=== PATIENT | male | born 1950 | race Caucasian/White ===

== ENCOUNTER 2018-04-21 08:11 | Emergency (ER) | payer MEDICARE, OTHER ==
[2018-04-21 08:21] VITALS: BP 184/96; PULSE 63; RESP 16; TEMP 97.6
--- NOTE | 2018-04-21 08:28 | ED ---
ENT HPI - General Chief complaint: ENT Stated complaint: blood in ear Time Seen by Provider: 04/21/18 08:22 Source: patient, RN notes reviewed Mode of arrival: ambulatory Limitations: no limitations - History of Present Illness Initial comments: 67 year old male presents emergency Department chief complaint of blood in his right ear canal. Patient states he woke up with this. Patient did admit that he's been digging at his ear secondary to ear wax. Patient states she has no associated pain, decreased hearing, headache, dizziness, fever or chills. Patient states her was only one episode of blood. Patient does not take any blood thinners. Patient states depending like this in the past. Patient offers no other complaints. - Related Data Home Medications Medication Instructions Recorded Confirmed Albuterol Inhaler [Ventolin 2 puff INHALATION RT-Q6H PRN 02/11/15 03/17/17 Inhaler] Levothyroxine Sodium [Levoxyl] 112 mcg PO DAILY 02/11/15 03/17/17 amLODIPine [Norvasc] 10 mg PO DAILY 03/12/15 03/17/17 Albuterol Nebulized [Ventolin 2.5 mg INHALATION RT-Q4H PRN 03/17/17 03/17/17 Nebulized] Hydrocodone/Acetaminophen [Crystal 1 tab PO TID PRN 03/17/17 03/17/17 10-325] Lisinopril [Zestril] 40 mg PO DAILY 03/17/17 03/17/17 Previous Rx's Medication Instructions Recorded Ofloxacin 0.3% Otic Soln [Floxin 10 drops BOTH EARS BID #10 ml 04/21/18 0.3% Otic Soln] Allergies Allergy/AdvReac Type Severity Reaction Status Date / Time No Known Allergies Allergy Verified 04/21/18 08:21 Review of Systems ROS Statement: Those systems with pertinent positive or pertinent negative responses have been documented in the HPI. ROS Other: All systems not noted in ROS Statement are negative. Past Medical History Past Medical History: Cancer, Hypertension, Thyroid Disorder Additional Past Medical History / Comment(s): throat ca, migraines, back pain, insomnia History of Any Multi-Drug Resistant Organisms: None Reported Past Surgical History: Orthopedic Surgery Additional Past Surgical History / Comment(s): back, neck Past Psychological History: No Psychological Hx Reported Smoking Status: Current every day smoker Past Alcohol Use History: None Reported Past Drug Use History: None Reported General Exam Limitations: no limitations General appearance: alert, in no apparent distress Head exam: Present: atraumatic, normocephalic, normal inspection Eye exam: Present: normal appearance, PERRL, EOMI. Absent: scleral icterus, conjunctival injection, periorbital swelling ENT exam: Present: normal oropharynx, mucous membranes moist, TM's normal bilaterally. Absent: normal external ear exam (Right EAC there is no abrasion noted there is old dried blood no active bleeding there is mild cerumen) Neck exam: Present: normal inspection, full ROM. Absent: tenderness, meningismus, lymphadenopathy Respiratory exam: Present: normal lung sounds bilaterally. Absent: respiratory distress, wheezes, rales, rhonchi, stridor Cardiovascular Exam: Present: regular rate, normal rhythm, normal heart sounds. Absent: systolic murmur, diastolic murmur, rubs, gallop, clicks Course Vital Signs 04/21/18 08:17 Temperature 97.6 F Pulse Rate 63 Respiratory 16 Rate Blood Pressure 184/96 O2 Sat by Pulse 99 Oximetry Medical Decision Making - Medical Decision Making 67-year-old male presented for right here blood in canal. Patient has noted abrasion with no active bleeding. There is no evidence of perforation. He does have mild cerumen impaction. Patient will given ofloxacin eardrops for prophylaxis antibiotics. Patient will follow-up with ENT return for any worsening symptoms. Disposition Clinical Impression: Abrasion of ear canal Disposition: HOME SELF-CARE Condition: Stable Instructions: Earache (ED) Additional Instructions: Please return to the Emergency Department if symptoms worsen or any other concerns. Prescriptions: Ofloxacin 0.3% Otic Soln [Floxin 0.3% Otic Soln] 10 drops BOTH EARS BID #10 ml Is patient prescribed a controlled substance at d/c from ED?: No Referrals: Khalif Stephens MD [Primary Care Provider] - 1-2 days Carson Bridges MD [STAFF PHYSICIAN] - 1-2 days Time of Disposition: 08:28
== END 2018-04-21 08:31 | disposition home or self-care (01) ==
LOC: EC 08:11
DX: S00.411A Abrasion of right ear, initial encounter (principal); I10 Essential (primary) hypertension; E07.9 Disorder of thyroid, unspecified; F17.200 Nicotine dependence, unspecified, uncomplicated; Z85.89 Personal history of malignant neoplasm of other organs and systems; Z79.899 Other long term (current) drug therapy; W22.8XXA Striking against or struck by other objects, initial encounter
CPT/HCPCS: 99282

== ENCOUNTER → 2018-05-06 | Outpatient (CLI) | payer MEDICARE, OTHER ==
[2018-05-06 11:26] LABS: Basophils % (A) 1 %; Eosinophils # (A) 0.1 k/uL (0-0.7); Eosinophils % (A) 2 %; HCT 44.2 % (39.0-53.0); HGB 14.9 gm/dL (13.0-17.5); Lymphocytes % (A) 21 %; MCH 30.3 pg (25.0-35.0); MCHC 33.8 g/dL (31.0-37.0); MCV 89.7 fL (80.0-100.0); Mean Platelet Volume 7.9; Monocytes # (A) 0.2 k/uL (0-1.0); Monocytes % (A) 5 %; Neutrophils # (A) 3.2 k/uL (1.3-7.7); Neutrophils % (A) 70 %; Platelet Count 134 k/uL (150-450); RBC 4.93 m/uL (4.30-5.90); RDW 13.4 % (11.5-15.5); WBC 4.5 k/uL (3.8-10.6)
[2018-05-06 11:35] LABS: Albumin 4.5 g/dL (3.5-5.0); Bilirubin, Delta 0.1 mg/dL (0.0-0.2); Bilirubin,Unconjugated 1.1 mg/dL (0.0-1.1); Total Bilirubin 1.2 mg/dL (0.2-1.3); Total Protein 8.1 g/dL (6.3-8.2)
[2018-05-06 11:51] LABS: INR 1.1 (<1.2); Prothrombin Time 11.3 sec (9.0-12.0)
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
[2018-05-06 16:23] LABS: Alpha Fetoprotein, Tumor Mkr 3.9 ng/mL (0.0-7.9)
[2018-05-06 20:26] LABS: Gliadin AB IgA, Unit 0.7 U/mL
[2018-05-09 16:00] LABS: HCV Quant Log 6.61 (<1.08)
== END | disposition home or self-care (01) ==
LOC: RADUSWWP 10:23
PROVIDERS: ATTEND Internal Medicine
DX: K80.20 Calculus of gallbladder without cholecystitis without obstruction (principal); N28.1 Cyst of kidney, acquired; I86.8 Varicose veins of other specified sites; B18.2 Chronic viral hepatitis C; K21.0 Gastro-esophageal reflux disease with esophagitis
CPT/HCPCS: 36415; 76705; 80076; 82105; 83516; 85025; 85610; 87522; 87902

== ENCOUNTER 2018-06-09 08:56 | Day surgery (SDC) | payer MEDICARE, OTHER ==
[2018-06-07 14:18] VITALS: BMI 23.6
[~2018-06-09 08:56] MED LIST: LACTATED RINGERS 1,000 ML IV SCH; LIDOCAINE 1% 20 ML VIAL (10MG/ML) FOR IV START INTRADERMA PRN
[2018-06-09 09:22] VITALS: RESP 16; TEMP 97.6
[2018-06-09] MEDS ORDERED: LIDOCAINE 1% INJ 10MG/ML (20 ML MDV) ONE (10:18)
[2018-06-09] MEDS ORDERED: PROPOFOL 10 MG/ML 20 ML VIAL IV ONE (10:18)
--- NOTE | 2018-06-09 10:47 | P.PCN ---
Date of Procedure: 06/09/18 Description of Procedure: BRIEF HISTORY: Patient is a 68-year-old, pleasant, male patient with a known hepatitis C currently receiving treatment with Harvoni and prior throat cancer status post surgery in the past who is being followed in the outpatient setting for GERD and symptoms of gas and belching. Patient has been tried on dietary modifications and starting of a PPI with minimal improvement in his symptoms. He is been scheduled for an EGD for further investigation. PROCEDURE PERFORMED: Esophagogastroduodenoscopy with biopsy. PREOPERATIVE DIAGNOSIS: GERD, symptoms of belching and gas. ESTIMATED BLOOD LOSS: Minimal. IV sedation per anesthesia. PROCEDURE: After informed consent was obtained, the patient was brought into the endoscopy unit. IV sedation was administered by Anesthesia under continuous monitoring. Initially the Olympus GIF-190 video endoscope was inserted into the mouth. Esophagus intubated without any difficulty. It was gradually advanced into the stomach and duodenum and carefully examined. The bulb and the second part of the duodenum appeared grossly normal, there was mild distention noted. Biopsies of the bulb and second portion of the duodenum were taken given patient 's symptoms to rule out celiac sprue. The scope at this time was withdrawn to the stomach, adequately insufflated with air, and upon careful examination, mucosa of the antrum, body, cardia and the fundus appeared normal except for some mild scattered erythema in the antrum and body suggestive of gastritis which was biopsied. The scope was then withdrawn into the esophagus. The GE junction was located at 44 cm from the incisors. The esophagus appeared normal. There were no erosions or ulcerations seen and the patient tolerated the procedure well. IMPRESSION: 1. Duodenal biopsies. 2. Mild gastritis of the antrum and body, biopsied. RECOMMENDATIONS: The findings of this examination were discussed with the patient and his niece. Continue twice daily PPI therapy. Await pathology from biopsies. Patient may benefit from the addition of a probiotic. And also consider treatment with Xifaxan in the future. Again have reemphasized to the patient that he would benefit from follow-up with pulmonology given description of episodes at night suggestive of apnea.
[2018-06-09 11:14] VITALS: BP 123/72; PULSE 53
== END 2018-06-09 12:03 | disposition home or self-care (01) ==
LOC: ORWHC2ENDO 08:56
PROVIDERS: ATTEND Internal Medicine
DX: K29.50 Unspecified chronic gastritis without bleeding (principal); K21.9 Gastro-esophageal reflux disease without esophagitis; I10 Essential (primary) hypertension; B19.20 Unspecified viral hepatitis C without hepatic coma; Z85.819 Personal history of malignant neoplasm of unspecified site of lip, oral cavity, and pharynx; F17.210 Nicotine dependence, cigarettes, uncomplicated; Z79.899 Other long term (current) drug therapy; Z79.890 Hormone replacement therapy; Z79.891 Long term (current) use of opiate analgesic
CPT/HCPCS: 88305; 43239; J2001; J2704

== ENCOUNTER 2018-07-31 03:28 | Emergency (ER) | payer MEDICARE, OTHER ==
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
--- NOTE | 2018-07-31 05:00 | CT ---
EXAM: CT Abdomen and Pelvis Without Intravenous Contrast CLINICAL HISTORY: ITS.REASON CT Reason: Pain, stone protocol TECHNIQUE: Axial computed tomography images of the abdomen and pelvis without intravenous contrast. CTDI is 7 mGy and DLP is 354 mGy-cm. This CT exam was performed using one or more of the following dose reduction techniques: automated exposure control, adjustment of the mA and/or kV according to patient size, and/or use of iterative reconstruction technique. COMPARISON: No relevant prior studies available. FINDINGS: Lung bases: No mass. No consolidation. ABDOMEN: Liver: Unremarkable. Gallbladder and bile ducts: Gallstones are seen. Pancreas: No ductal dilation. Spleen: Unremarkable. Adrenals: Unremarkable. Kidneys and ureters: Right renal cyst. Punctate nonobstructive stone in the left kidney. No obstructing stones. No hydronephrosis. Stomach and bowel: No bowel obstruction or bowel wall thickening. PELVIS: Appendix: No evidence of appendicitis. Bladder: No stones. Mildly thickened, likely due to underlying BPH. Reproductive: Enlarged. ABDOMEN and PELVIS: Intraperitoneal space: Trace pelvic free fluid. Bones/joints: No acute fractures. L2-3 fusion hardware is intact. L2- 3 vertebral bodies are fused. Soft tissues: Unremarkable. Vasculature: No abdominal aortic aneurysm. Moderate atherosclerosis. Lymph nodes: No enlarged lymph nodes. IMPRESSION: 1. No definite hydronephrosis. Punctate nonobstructive stone in the left kidney. 2. Mildly thickened bladder wall, likely due to underlying prostatomegaly. 3. Nonspecific trace pelvic free fluid. 4. Cholelithiasis.
[2018-07-31 06:35] VITALS: BP 167/91; RESP 18
[2018-07-31 07:57] VITALS: PULSE 58; TEMP 98.6
== END 2018-07-31 07:56 | disposition home or self-care (01) ==
LOC: EC 03:28
DX: M62.830 Muscle spasm of back (principal); K21.9 Gastro-esophageal reflux disease without esophagitis; I10 Essential (primary) hypertension; E07.9 Disorder of thyroid, unspecified; Z86.19 Personal history of other infectious and parasitic diseases; Z85.89 Personal history of malignant neoplasm of other organs and systems; F17.200 Nicotine dependence, unspecified, uncomplicated; Z79.899 Other long term (current) drug therapy; Z79.890 Hormone replacement therapy
CPT/HCPCS: 74176; 99283

== ENCOUNTER → 2018-09-15 | Outpatient (CLI) | payer MEDICARE, OTHER ==
[2018-09-15 15:38] LABS: Basophils # (A) 0.1 k/uL (0-0.2); Basophils % (A) 1 %; Eosinophils # (A) 0.2 k/uL (0-0.7); Eosinophils % (A) 3 %; HGB 14.3 gm/dL (13.0-17.5); Lymphocytes # (A) 1.7 k/uL (1.0-4.8); Lymphocytes % (A) 33 %; MCH 30.3 pg (25.0-35.0); MCHC 34.1 g/dL (31.0-37.0); Mean Platelet Volume 8.4; Monocytes # (A) 0.2 k/uL (0-1.0); Monocytes % (A) 4 %; Neutrophils % (A) 58 %; Platelet Count 132 k/uL (150-450); RBC 4.72 m/uL (4.30-5.90); RDW 14.7 % (11.5-15.5); WBC 5.2 k/uL (3.8-10.6)
[2018-09-15 22:59] LABS: Albumin 4.7 g/dL (3.80-4.90); Albumin/Globulin Ratio 2.04 (1.60-3.17); Bilirubin, Conjugated 0.3 mg/dL (0.20-0.40); Bilirubin,Unconjugated 0.9 mg/dL; Globulin 2.3 g/dL (1.6-3.3); Total Bilirubin 1.2 mg/dL (0.2-1.2)
== END | disposition home or self-care (01) ==
LOC: LABWHC1 15:02
PROVIDERS: ATTEND Physician Assistant
DX: B18.2 Chronic viral hepatitis C (principal)
CPT/HCPCS: 36415; 80076; 85025; 87522

== ENCOUNTER 2018-11-30 08:55 | Emergency (ER) | payer MEDICARE, OTHER ==
[2018-11-30 09:05] VITALS: TEMP 97.5
[2018-11-30] MEDS ORDERED: SODIUM CHLORIDE 0.9% 500 ML 500 ML IV STA (09:31)
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
[2018-11-30 10:03] LABS: Basophils % (A) 1 %; Eosinophils # (A) 0.2 k/uL (0-0.7); Eosinophils % (A) 3 %; HCT 42.7 % (39.0-53.0); HGB 14.1 gm/dL (13.0-17.5); Lymphocytes # (A) 1.4 k/uL (1.0-4.8); Lymphocytes % (A) 25 %; MCH 30.1 pg (25.0-35.0); MCV 91.2 fL (80.0-100.0); Mean Platelet Volume 7.9; Monocytes # (A) 0.2 k/uL (0-1.0); Monocytes % (A) 4 %; Neutrophils # (A) 3.6 k/uL (1.3-7.7); Neutrophils % (A) 65 %; Platelet Count 138 k/uL (150-450); RBC 4.68 m/uL (4.30-5.90); RDW 13.5 % (11.5-15.5); WBC 5.6 k/uL (3.8-10.6)
[2018-11-30 10:06] LABS: Appearance,Urine Clear (Clear); Bilirubin,Urine Negative (Negative); Blood,Urine Negative (Negative); Color,Urine Yellow; Glucose,Urine (UA) Negative (Negative); Ketones,Urine Negative (Negative); Leukocyte Esterase,Urine Trace (Negative); Mucus,Urine Rare /hpf; Nitrite,Urine Negative (Negative); Protein,Urine Negative (Negative); RBC,Urine 1 /hpf (0-5); Specific Gravity,Urine 1.017 (1.001-1.035); Urobilinogen,Urine <2.0 mg/dL (<2.0); WBC,Urine 4 /hpf (0-5)
[2018-11-30 10:14] LABS: Partial Thromboplastin Time 23.1 sec (22.0-30.0); Prothrombin Time 10.4 sec (9.0-12.0)
[2018-11-30 10:19] LABS: Albumin 5.3 g/dL (3.5-5.0); Calcium 10.6 mg/dL (8.4-10.2); Magnesium 2.1 mg/dL (1.6-2.3); Potassium 4.6 mmol/L (3.5-5.1); Total Bilirubin 1.2 mg/dL (0.2-1.3); Total Protein 8.9 g/dL (6.3-8.2)
[2018-11-30 10:35] LABS: T4, Free (Free Thyroxine) 1.56 ng/dL (0.78-2.19)
--- NOTE | 2018-11-30 10:38 | XR ---
EXAMINATION TYPE: XR chest 2V DATE OF EXAM: 11/30/2018 COMPARISON: 02/25/2016 INDICATION: Weakness TECHNIQUE: Frontal and lateral views of the chest are obtained. FINDINGS: The heart size is normal. The pulmonary vasculature is normal. The lungs are clear. There is hyperinflation flattening the diaphragms compatible COPD. IMPRESSION: 1. No acute pulmonary process. 2. COPD
[2018-11-30 11:23] VITALS: BP 159/95; PULSE 66; RESP 18
== END 2018-11-30 11:23 | disposition home or self-care (01) ==
LOC: EC 08:55
DX: R53.83 Other fatigue (principal); R53.1 Weakness; R00.1 Bradycardia, unspecified; J44.9 Chronic obstructive pulmonary disease, unspecified; K21.9 Gastro-esophageal reflux disease without esophagitis; I10 Essential (primary) hypertension; E07.9 Disorder of thyroid, unspecified; F17.200 Nicotine dependence, unspecified, uncomplicated; Z71.6 Tobacco abuse counseling; Z85.818 Personal history of malignant neoplasm of other sites of lip, oral cavity, and pharynx; Z98.1 Arthrodesis status
CPT/HCPCS: 36415; 71046; 80053; 81001; 83605; 83735; 84439; 84443; 84484; 85025; 85610; 85730; 93005; 96360; 99285

== ENCOUNTER → 2018-12-16 | Outpatient (CLI) | payer MEDICARE, OTHER ==
[2018-12-16 09:27] LABS: Basophils % (A) 1 %; Eosinophils # (A) 0.1 k/uL (0-0.7); Eosinophils % (A) 2 %; HGB 13.8 gm/dL (13.0-17.5); Lymphocytes # (A) 1.3 k/uL (1.0-4.8); Lymphocytes % (A) 19 %; MCH 32.1 pg (25.0-35.0); MCHC 34.5 g/dL (31.0-37.0); MCV 93.1 fL (80.0-100.0); Mean Platelet Volume 7.5; Monocytes # (A) 0.4 k/uL (0-1.0); Monocytes % (A) 6 %; Neutrophils # (A) 4.6 k/uL (1.3-7.7); Neutrophils % (A) 71 %; Platelet Count 118 k/uL (150-450); RDW 13.8 % (11.5-15.5); WBC 6.5 k/uL (3.8-10.6)
[2018-12-16 09:38] LABS: ALT 14 U/L (21-72); AST 20 U/L (17-59); African American GFR (CKD) >90 (>60 ml/min/1.73 sqM); Albumin 4.6 g/dL (3.5-5.0); Alkaline Phosphatase 54 U/L (38-126); Anion Gap 6 mmol/L; Blood Urea Nitrogen 18 mg/dL (9-20); Calcium 9.9 mg/dL (8.4-10.2); Carbon Dioxide 31 mmol/L (22-30); Chloride 104 mmol/L (98-107); Glucose 94 mg/dL (74-99); Potassium 4.5 mmol/L (3.5-5.1); Sodium 141 mmol/L (137-145); Total Bilirubin 1.5 mg/dL (0.2-1.3); Total Protein 7.9 g/dL (6.3-8.2)
[2018-12-16 09:42] LABS: INR 1.1 (<1.2); Prothrombin Time 11.2 sec (9.0-12.0)
--- NOTE | 2018-12-16 09:42 | US ---
EXAMINATION TYPE: US liver DATE OF EXAM: 12/16/2018 COMPARISON: CT 07/31/2018 CLINICAL HISTORY: B18.2 CHR VIRAL HEP C. EXAM MEASUREMENTS: Liver Length: 17.7 cm Gallbladder Wall: 0.2 cm CBD: 0.4 cm Right Kidney: 10.8 x 4.3 x 4.9 cm Pancreas: Tail obscured by overlying bowel gas, duct visualized measuring 0.25 cm Liver: Within normal limits. Gallbladder: Multiple stones visualized Evidence for sonographic Gibbs's sign: No CBD: wnl Right Kidney: No hydronephrosis. Cystic area visualized mid pole measuring 0.9 cm IMPRESSION: 1. Cholelithiasis without sonographic evidence of acute cholecystitis. 2. Pancreatic duct is upper limits of normal in size. This could be further evaluated with MRCP. 3. Simple appearing 9 mm benign-appearing renal cyst.
== END ==
LOC: RADUSWWP 08:25
PROVIDERS: ATTEND Internal Medicine
DX: K80.20 Calculus of gallbladder without cholecystitis without obstruction (principal); N28.1 Cyst of kidney, acquired; B18.2 Chronic viral hepatitis C
CPT/HCPCS: 36415; 76705; 80053; 82105; 85025; 85610

== ENCOUNTER 2018-12-26 09:10 | Emergency (ER) | payer MEDICARE, OTHER ==
[2018-12-26 09:16] VITALS: BP 145/88; PULSE 57; RESP 18; TEMP 98.2
[2018-12-26] MEDS ORDERED: TAMSULOSIN 0.4 MG CAP.ER.24H PO STA (09:29)
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
[2018-12-26 10:10] LABS: Appearance,Urine Clear (Clear); Bacteria,Urine Rare /hpf; Bilirubin,Urine Negative (Negative); Blood,Urine Negative (Negative); Calcium Oxalate Crystals,Urine Occasional /hpf; Color,Urine Yellow; Glucose,Urine (UA) Negative (Negative); Ketones,Urine Negative (Negative); Leukocyte Esterase,Urine Moderate (Negative); Mucus,Urine Few /hpf; Nitrite,Urine Negative (Negative); PH, Urine 5.5 (5.0-8.0); Protein,Urine Trace (Negative); RBC,Urine 4 /hpf (0-5); Specific Gravity,Urine 1.023 (1.001-1.035); WBC,Urine 11 /hpf (0-5)
== END 2018-12-26 10:50 | disposition home or self-care (01) ==
LOC: EC 09:10
DX: N40.1 Benign prostatic hyperplasia with lower urinary tract symptoms (principal); R39.11 Hesitancy of micturition; N39.0 Urinary tract infection, site not specified; K21.9 Gastro-esophageal reflux disease without esophagitis; I10 Essential (primary) hypertension; E07.9 Disorder of thyroid, unspecified; G43.909 Migraine, unspecified, not intractable, without status migrainosus; F17.200 Nicotine dependence, unspecified, uncomplicated; Z85.818 Personal history of malignant neoplasm of other sites of lip, oral cavity, and pharynx; Z79.890 Hormone replacement therapy; Z79.891 Long term (current) use of opiate analgesic; Z79.899 Other long term (current) drug therapy
CPT/HCPCS: 81001; 87086; 99284

== ENCOUNTER 2019-01-14 13:55 | Emergency (ER) | payer MEDICARE, OTHER ==
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
[2019-01-14 14:57] LABS: Amorphous Sediment,Urine Rare /hpf; Appearance,Urine Cloudy (Clear); Bilirubin,Urine Negative (Negative); Blood,Urine Negative (Negative); Color,Urine Light Yellow; Glucose,Urine (UA) Negative (Negative); Ketones,Urine Negative (Negative); Leukocyte Esterase,Urine Trace (Negative); Mucus,Urine Rare /hpf; Nitrite,Urine Negative (Negative); PH, Urine 7.5 (5.0-8.0); Protein,Urine Negative (Negative); RBC,Urine 1 /hpf (0-5); Squamous Epithelial Cell,Urine <1 /hpf (0-4); Urobilinogen,Urine <2.0 mg/dL (<2.0); WBC,Urine 3 /hpf (0-5)
[2019-01-14] MEDS ORDERED: TAMSULOSIN 0.4 MG CAP.ER.24H PO STA (15:11)
[2019-01-14 15:35] VITALS: BP 128/86; PULSE 78; RESP 18; TEMP 97.9
== END 2019-01-14 15:32 | disposition home or self-care (01) ==
LOC: EC 13:55
DX: R33.9 Retention of urine, unspecified (principal); R53.81 Other malaise; R53.83 Other fatigue; I10 Essential (primary) hypertension; E07.9 Disorder of thyroid, unspecified; F17.200 Nicotine dependence, unspecified, uncomplicated; Z79.890 Hormone replacement therapy; Z79.899 Other long term (current) drug therapy; Z85.818 Personal history of malignant neoplasm of other sites of lip, oral cavity, and pharynx; Z92.3 Personal history of irradiation; Z87.19 Personal history of other diseases of the digestive system; Z98.890 Other specified postprocedural states
CPT/HCPCS: 51798; 81001; 87086; 99284

== ENCOUNTER 2019-02-14 17:06 | Emergency (ER) | payer MEDICARE, OTHER ==
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
[2019-02-14] MEDS ORDERED: PROPARACAINE 0.5% OPHTH DROPS 15 ML BTL LEFT EYE STA (19:47)
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
[2019-02-14] MEDS ORDERED: AMOXIC-POT CLAV 875MG STARTER 2 EACH TABLET PO STA (19:50)
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
[2019-02-14 20:43] VITALS: BP 138/72; PULSE 80; RESP 18; TEMP 98
== END 2019-02-14 20:20 | disposition home or self-care (01) ==
LOC: EC 17:06
DX: S02.32XA Fracture of orbital floor, left side, initial encounter for closed fracture (principal); S02.40DA Maxillary fracture, left side, initial encounter for closed fracture; S02.40FA Zygomatic fracture, left side, initial encounter for closed fracture; S05.12XA Contusion of eyeball and orbital tissues, left eye, initial encounter; S10.83XA Contusion of other specified part of neck, initial encounter; T74.11XA Adult physical abuse, confirmed, initial encounter; I10 Essential (primary) hypertension; K21.9 Gastro-esophageal reflux disease without esophagitis; E07.9 Disorder of thyroid, unspecified; F17.200 Nicotine dependence, unspecified, uncomplicated; Z85.818 Personal history of malignant neoplasm of other sites of lip, oral cavity, and pharynx; Z92.3 Personal history of irradiation; Z98.890 Other specified postprocedural states; Z79.899 Other long term (current) drug therapy; Y04.0XXA Assault by unarmed brawl or fight, initial encounter; Y07.9 Unspecified perpetrator of maltreatment and neglect
CPT/HCPCS: 70450; 70486; 72125; 99284

== ENCOUNTER → 2020-01-09 | Outpatient (CLI) | payer MEDICARE, OTHER ==
--- NOTE | 2020-01-09 13:45 | CT ---
EXAMINATION TYPE: CT abdomen pelvis wo con DATE OF EXAM: 01/09/2020 HISTORY: Weight loss, abdominal pain. History of head and neck cancer. CT DLP: 508 mGycm. Automated Exposure Control for Dose Reduction was Utilized. TECHNIQUE: CT scan of the abdomen and pelvis is performed without oral or IV contrast. COMPARISON: CT abdomen and pelvis July 31, 2018. PET/CT May 02, 2016 FINDINGS: Within the limitations of a non-contrast study, the following observations are made. Evalu ation also noted suboptimal as patient has very little intra-abdominal fat. LUNG BASES: No significant abnormality is appreciated. LIVER/GB: Dependent calcified gallstones in gallbladder again seen axial image 40. PANCREAS: Poor visualization of pancreas in patient with little fat and lack of IV contrast similar t o prior CT. SPLEEN: No significant abnormality is seen. ADRENALS: No significant abnormality is seen. KIDNEYS: Roughly 1 cm thin-walled cyst right kidney lower pole level coronal image 49. No renal stone s or hydronephrosis present bilaterally. BOWEL: Suboptimal evaluation of bowel with little intra-abdominal fat and patient was not given enter ic contrast. No suspicious small or large bowel dilatation identified. GENITAL ORGANS: Enlarged prostate gland consistent with BPH. Scattered bilateral pelvic phleboliths r edemonstrated. LYMPH NODES: No greater than 1cm abdominal or pelvic lymph nodes are appreciated. OSSEOUS STRUCTURES: Postsurgical change L2-L3 level redemonstrated. Large hemangioma L1 vertebral bod y level redemonstrated. Alignment stable and satisfactory. OTHER: Moderate calcified plaque of the aorta extends into branch vessels greatest in the epigastric region IMPRESSION:. Suboptimal study. No obvious new mass or adenopathy. No renal calculi or hydronephrosis. No bowel obstruction.
== END | disposition home or self-care (01) ==
LOC: RADCTMAIN 12:36
PROVIDERS: ATTEND Family Medicine
DX: R10.9 Unspecified abdominal pain (principal)
CPT/HCPCS: 74176